=== PATIENT | male | born 1960 | race African-American/Black ===

== ENCOUNTER 2021-12-25 22:01 | Emergency (ER) | payer OTHER ==
[~2021-12-25] VITALS: Ht 167.6 cm; Wt 66.0 kg
[2021-12-25 22:26] VITALS: BP 154/98
[2021-12-26] MEDS ORDERED: IBUP-2028 MT (01:28)
[2021-12-26] MEDS ORDERED: TOPUD PO (01:28)
[2021-12-26] MEDS ORDERED: LIDO1ADH23 TP (01:29)
[2021-12-26] MEDS ORDERED: METH-653 MT (01:30)
== END 2021-12-26 00:44 | disposition left against medical advice (07) ==
LOC: ER 22:01
DX: S00.01XA Abrasion of scalp, initial encounter (principal); R07.89 Other chest pain; Z95.1 Presence of aortocoronary bypass graft; V49.49XA Driver injured in collision with other motor vehicles in traffic accident, initial encounter; Y93.89 Activity, other specified; Y92.488 Other paved roadways as the place of occurrence of the external cause
CPT/HCPCS: 71045; 93005; 99285

== ENCOUNTER 2021-12-26 01:05 | Emergency (ER) | payer OTHER ==
[~2021-12-26] VITALS: Ht 167.6 cm; Wt 66.0 kg
[2021-12-26 01:07] VITALS: BP 163/99
[2021-12-26] MEDS ORDERED: TOPUD PO (01:28)
[2021-12-26] MEDS ORDERED: IBUP-2028 MT (01:28)
[2021-12-26] MEDS ORDERED: LIDO1ADH23 TP (01:29)
[2021-12-26] MEDS ORDERED: METH-653 MT (01:30)
== END 2021-12-26 01:44 | disposition home or self-care (01) ==
LOC: ER 01:05
DX: R07.89 Other chest pain (principal); R51.9 Headache, unspecified; G89.11 Acute pain due to trauma; I10 Essential (primary) hypertension; I65.23 Occlusion and stenosis of bilateral carotid arteries; V49.49XA Driver injured in collision with other motor vehicles in traffic accident, initial encounter; Y93.89 Activity, other specified; Y92.488 Other paved roadways as the place of occurrence of the external cause; I25.10 Atherosclerotic heart disease of native coronary artery without angina pectoris; Z95.1 Presence of aortocoronary bypass graft
CPT/HCPCS: 99283

== ENCOUNTER 2024-01-31 12:24 | Emergency (ER) | payer OTHER ==
[~2024-01-31] VITALS: Ht 177.8 cm; Wt 73.0 kg
[~2024-01-31 12:24] MED LIST: IBUP-2028 MT; LIDO1ADH23 TP; METH-653 MT; TOPUD PO
[2024-01-31 12:31] VITALS: TEMP 98.5; O2SAT 100
[2024-01-31 12:40] VITALS: RESP 28
[2024-01-31] MEDS: IPRATROPIUM BROMIDE (0.02%) 0.5MG/2.5ML NEB HHN STA ×2 (12:40)
[2024-01-31] MEDS: ALBUTEROL (0.083%) 2.5MG/3ML NEB HHN STA (12:40)
[2024-01-31 12:41] LABS: HEMATOCRIT. 35.3 % (42.0-52.0); HEMOGLOBIN. 10.5 g/dL (14.0-18.0); MEAN CORPUSCULAR HEMOGLOBIN 23.8 pg (28.0-32.0); MEAN CORPUSCULAR HGB CONC 29.9 g/dL (31.0-37.0); MEAN CORPUSCULAR VOLUME 79.6 fL (80.0-94.0); MEAN PLATELET VOLUME 8.2 fl (7.4-10.4); PLATELET 229 x1000/uL (130-400); RED BLOOD CELL COUNT 4.43 mill/uL (4.7-6.1); RED CELL DISTRIBUTION WIDTH 18.2 % (11.6-14.6); WHITE BLOOD COUNT 3.8 x1000/uL (4.5-11.0)
[2024-01-31 12:44] LABS: DIFFERENTIAL COMMENT 1
[2024-01-31] MEDS ORDERED: FUROSEMIDE 100MG/10ML VIAL IVP ONE (12:45)
[2024-01-31 12:53] LABS: PROTHROMBIN TIME 10.9 sec (9.6-11.0)
[2024-01-31 13:06] LABS: ANISOCYTOSIS 1+; PLATELET ESTIMATE NORMAL
[2024-01-31] MEDS: MAGNESIUM 2 G PREMIX 50 ML IV ONE (13:11)
[2024-01-31] MEDS: METHYLPREDNISOLONE SOD SUCC 125MG/2ML (ACT-O-VIAL) IV STA (13:11)
[2024-01-31] MEDS: NITROGLYCERIN OINT 1GM/INCH UDPKT TD ONE (13:11)
[2024-01-31 13:13] LABS: ALANINE AMINOTRANSFERASE 21 IU/L (10-49); ALBUMIN 4.9 g/dL (3.2-4.8); ASPARTATE AMINOTRANSFERASE 32 IU/L (<34); BILIRUBIN TOTAL 0.3 mg/dL (0.1-1.0); CALCIUM 8.8 mg/dL (8.7-10.4); CARBON DIOXIDE 22 mEq/L (21-32); CHLORIDE 107 mEq/L (98-107); GLUCOSE 224 mg/dL (70-105); POTASSIUM 4.5 mEq/L (3.5-5.1); PROTEIN TOTAL 8.5 g/dL (6.0-8.3); SODIUM 138 mEq/L (136-145); TROPONIN I HIGH SENSITIVITY 46 ng/L (3.0-53); UREA NITROGEN BLOOD 22 mg/dL (9-23)
[2024-01-31] MEDS: FUROSEMIDE 40MG/4ML VIAL IVP NR (13:26)
[2024-01-31 13:29] LABS: BG BASE EXCESS -3.2 mmol/L (-2.0-2.0); BG CARBOXYHEMOGLOBIN 0.7 % (0.5-1.5); BG DEOXYHEMOGLOBIN 0.2 % (0.0-5.0); BG FRACTION INSPIRED OXYGEN 100; BG HCO3 ACT 23.6 mmol/L (22.0-26.0); BG METHEMOGLOBIN 0.6 % (0.0-1.5); BG OXYGEN SATURATION 99.8 % (92.0-98.5); BG OXYHEMOGLOBIN 98.5 % (94.0-97.0); BG PCO2 49.7 mmHg (35.0-45.0); BG PH 7.294 (7.350-7.450); BG PO2 528.8 mmHg (75.0-100.0); BG SAMPLE SITE LEFT RADIAL; BG TOTAL HEMOGLOBIN 11.6 g/dL (12.0-18.0); BG TOTAL RESPIRATORY RATE 28 b/min; BG VENT MODE MASK - BIPAP
[2024-01-31 14:06] VITALS: RESP 24
[2024-01-31 15:12] LABS: TROPONIN I HIGH SENSITIVITY 50 ng/L (3.0-53)
[2024-01-31 17:00] VITALS: BP 119/64; PULSE 88; RESP 18
== END 2024-01-31 18:19 | disposition left against medical advice (07) ==
LOC: ER 12:28 → EDBEDREQSVC 14:27 → EDBEDREQ 14:27 → EDBEDREQTM 14:27 → CANBEDREQ 18:17 → ER 18:19
DX: J96.02 Acute respiratory failure with hypercapnia (principal); J44.1 Chronic obstructive pulmonary disease with (acute) exacerbation; I11.0 Hypertensive heart disease with heart failure; I50.9 Heart failure, unspecified; E78.00 Pure hypercholesterolemia, unspecified; I25.2 Old myocardial infarction
CPT/HCPCS: 80053; 83880; 85025; 85610; 84484; 36415; 71045; 82805; 82375; 94660; 93005; 94644; 96365; 96375; 99285; 36600; J1940; J3475; J2930; Z7610 ×6